=== PATIENT | female | born 1995 | race Two or more races ===

== ENCOUNTER 2016-07-31 19:48 | Emergency (ER) | payer OTHER ==
[~2016-07-31] VITALS: Ht 157.5 cm; Wt 54.4 kg
[~2016-07-31 19:48] MED LIST: ACET-704 PO; DOCU-27 PO; IBUP-1060 PO
[2016-07-31 20:14] LABS: BILIRUBIN,URINE NEGATIVE (NEG); GLUCOSE,URINE NEGATIVE (NEG); NITRITE,URINE NEGATIVE (NEG); PH,URINE 6.5; PROTEIN,URINE NEGATIVE (NEG-TRACE); UROBILINOGEN,URINE 0.2 mg/dL (0.2 mg/dL)
[2016-07-31 20:19] LABS: BACTERIA,URINE 0 /HPF (0-FEW); RBC,URINE 0 /HPF (0-2); SQUAMOUS EPITHELIAL CELL,UR FEW /LPF; WBC,URINE OCC /HPF (0-4)
[2016-07-31] MEDS ORDERED: IV NORMAL SALINE 500ML BAG 500 ML IV ONE (20:45)
[2016-07-31] MEDS ORDERED: METR500T4 PO (21:30)
[2016-07-31 21:50] VITALS: BP 121/56
[2016-07-31] MEDS ORDERED: metroNIDAZOLE 500 MG TABLET PO ONE (22:00)
--- NOTE | 2016-07-31 23:14 | ED.ADGEN ---
Past Medical History Past Medical History: No Pertinent History, Asthma Past Surgical History: Cholecystectomy Alcohol Use: None Drug Use: None Adult General Chief Complaint Chief Complaint: ABDOMINAL PAIN HPI HPI Patient is a 20 year old woman, presents emergency Department with complaint of pelvic pain, which began 2 days ago, associated with white vaginal discharge , and pain during intercourse. Patient states the pain will, though describes a sharp and shooting pain that begins in her lower abdomen and occasionally shoot up to the mid abdominal region. She denies any injuries, any pain with urination , any similar symptoms previously, any concerns for STI exposures. No nausea or vomiting, no weakness, numbness, tingling, no chest pain, no back or flank pain. Review of Systems Review of Systems Constitutional: Denies fever or chills. [] Eyes: Denies change in visual acuity. [] HENT: Denies nasal congestion or sore throat. [] Respiratory: Denies cough or shortness of breath. [] Cardiovascular: Denies chest pain or edema. [] GI: Pelvic abdominal pain, nausea, vomiting, bloody stools or diarrhea. Vaginal discharge. : Denies dysuria. [] Musculoskeletal: Denies back pain or joint pain. [] Integument: Denies rash. [] Neurologic: Denies headache, focal weakness or sensory changes. [] Endocrine: Denies polyuria or polydipsia. [] Lymphatic: Denies swollen glands. [] Psychiatric: Denies depression or anxiety. [] Current Medications Current Medications Current Medications Medications (Trade) Dose Ordered Sig/Ann Start Time Stop Time Status Last Admin Dose Admin Metronidazole (Flagyl) 500 mg 1X ONCE 07/31/16 22:00 07/31/16 22:00 DC 07/31/16 21:46 500 MG Sodium Chloride 500 ml @ 500 mls/hr 1X ONCE 07/31/16 20:45 07/31/16 21:44 Cancel Allergies Allergies Allergies Coded Allergies Type Severity Reaction Last Updated Verified No Known Drug Allergies 07/06/13 No Physical Exam Physical Exam Constitutional: Well developed, well nourished, no acute distress, non-toxic appearance. [] HENT: Normocephalic, atraumatic, bilateral external ears normal, oropharynx moist, no oral exudates, nose normal. [] Eyes: PERRLA, EOMI, conjunctiva normal, no discharge. [] Neck: Normal range of motion, no tenderness, supple, no stridor. [] Cardiovascular:Heart rate regular rhythm, no murmur, S1, S2, rubs or gallops. [] Lungs & Thorax: Bilateral breath sounds clear to auscultation, no wheezing, rhonchi, rales. [] Abdomen: Bowel sounds normal, soft, no tenderness to palpation, no rebound, rigidity, no guarding no masses, no pulsatile masses. [] Skin: Warm, dry, no erythema, no rash. [] Back: No tenderness, no CVA tenderness. [] Extremities: No tenderness, no cyanosis, no clubbing, ROM intact, no edema. [] Neurologic: Alert and oriented X 3, normal motor function, normal sensory function, no focal deficits noted. [] Psychologic: Affect normal, judgement normal, mood normal. [] examination: Patient with a normal-appearing external examination, no lesions or other maladies identified, bimanual examination reveals a closed os, nontender, no CMT, no adnexal masses or tenderness identified. Speculum examination reveals a slightly friable cervix, with a moderate amount of thick white discharge. Specimens taken without issue. Current Patient Data Vital Signs Vital Signs Date Time Temp Pulse Resp B/P (MAP) Pulse Ox O2 Delivery O2 Flow Rate FiO2 07/31/16 21:50 90 16 121/56 (77) 99 07/31/16 20:00 98.3 Room Air 98.3 Lab Values Laboratory Tests Test 07/31/16 19:13 07/31/16 20:00 POC Urine HCG, Qualitative Hcg negative (Negative) Urine Collection Type Unknown Urine Color Yellow Urine Clarity Cloudy Urine pH 6.5 Urine Specific Antoine <=1.005 Urine Protein Negative mg/dL (NEG-TRACE) Urine Glucose (UA) Negative mg/dL (NEG) Urine Ketones (Stick) Negative mg/dL (NEG) Urine Blood Negative (NEG) Urine Nitrite Negative (NEG) Urine Bilirubin Negative (NEG) Urine Urobilinogen Dipstick 0.2 mg/dL (0.2 mg/dL) Urine Leukocyte Esterase Negative (NEG) Urine RBC 0 /HPF (0-2) Urine WBC Occ /HPF (0-4) Urine Squamous Epithelial Cells Few /LPF Urine Bacteria 0 /HPF (0-FEW) Microbiology 07/31/16 Wet Prep - Final, Complete EKG EKG Not indicated. [] Radiology/Procedures Radiology/Procedures Not indicated. [] Course & Med Decision Making Course & Med Decision Making Pertinent Labs and Imaging studies reviewed. (See chart for details) HCG negative, urinalysis unremarkable. Patient asymptomatic in the emergency department. Patient states that she did use Plan B last week, otherwise no medications. Examination concerning for bacterial vaginosis, patient again denies any possible STI exposures or need for treatment. Cultures were taken, patient was informed that she would be contacted with results of the require follow-up. Patient was treated with metronidazole, given clear and detailed return instructions and precautions, and also contact information for Dr. Munoz WATCHSTANDER in order to establish follow-up. Patient discharged home in stable condition with plan and instructions as above. Dragon Disclaimer Dragon Disclaimer This electronic medical record was generated, in whole or in part, using a voice recognition dictation system. Departure Impression: Primary Impression: Bacterial vaginosis Additional Impression: Abdominal cramps Disposition: 01 HOME, SELF-CARE Condition: IMPROVED Scripts Metronidazole (METRONIDAZOLE) 500 Mg Tablet 1 TAB PO BID, #14 TAB Prov: TRUNG PENA DO 07/31/16 Problem Qualifiers TRUNG PENA DO July 31, 2016 23:14
== END 2016-07-31 21:51 | disposition home or self-care (01) ==
LOC: ER 19:48
DX: N76.0 Acute vaginitis (principal); B96.89 Other specified bacterial agents as the cause of diseases classified elsewhere; R10.9 Unspecified abdominal pain; J45.909 Unspecified asthma, uncomplicated; Z90.49 Acquired absence of other specified parts of digestive tract
CPT/HCPCS: 81001; 84703; 99284; Q0111; 81025